=== PATIENT | female | born 1955 | race Caucasian/White ===

== ENCOUNTER → 2016-09-03 | Day surgery (SDC) | payer OTHER ==
[~2016-09-03] VITALS: Ht 162.6 cm; Wt 63.5 kg
--- NOTE | 2016-09-03 16:12 | Operative Report ---
Operative/Inv Procedure Report Surgery Date: 09/03/16 Name of Procedure: Left shoulder arthroscopy, arthroscopic rotator cuff (subscapularis) repair, subacromial decompression, extensive debridement, subpectoral biceps tenodesis Pre-Operative Diagnosis: Left shoulder subscapular tear Post-Operative Diagnosis: Left shoulder subscapularis tear Estimated Blood Loss: scant Surgeon/Stone Cleaner: ALONZO MARIEE,ARLEN Rivera. Anesthesia: general endotracheal tube, block Complications: None Condition: Stable to PACU Operative Indication: This is a 60-year-old female who is left shoulder. MRI showed a subscapularis tear. She has failed conservative care. Risks and benefits of the procedure were discussed with the patient at length. Risks include but are not limited to nerve damage, muscle damage, infection, blood loss, blood clots, pulmonary embolus, and even . The patient agreed to the above risks and elected to proceed with surgery. Operative/Procedure Note Note: The patient was taken to the operating room and placed in the lateral decubitus position with the operative side up after anesthesia was induced. The upper extremity was prepped and draped in the normal sterile fashion. A timeout was performed prior to incision. The site marking was visualized prior to incision. IV antibiotics were given prior to incision. After the upper extremity was prepped and draped a spinal needle was used to insufflate the shoulder joint with saline. An 11 blade was used to incise the skin for the posterior portal placement. The cannula was then placed. The camera was inserted. An anterior portal was established just proximal and lateral to the coracoid with a spinal needle and an 11 blade. The diagnostic arthroscopy was then performed that showed the above findings. The biceps tendon was tenotomized at its base with a wand. A combination of a shaver and a wand were used to stabilize the anterior inferior as well as superior labrum. The shaver was used to debride the anterior inferior glenoid. The shaver was then used to prepare the bony bed of the subscapularis insertion. The lesser tuberosity was decorticated with the shaver back to a healthy bed of bleeding bone. A cannula was placed through the anterolateral portal position. This was made with the use of a spinal needle and an 11 blade. A 5.5 mm helicoil anchor was then inserted into the lesser tuberosity. The sutures were then shuttled with a lasso loop type configuration grasping the rolled border of the superior scapularis tendon. Once this was passed this served to reduce the subscapularis tendon back to the footprint. This was tied down over the top. The excess suture was cut. Stable fixation was obtained. Next the subacromial space was entered through the posterior portal. Next the shaver was inserted through the previous anterolateral portal and a subacromial bursectomy was performed. Any bleeding vessels were identified and cauterized. The shaver was used to debride any bursal tissue on the undersurface of the acromion and surrounding the humeral head. The coracoacromial ligament was taken down with a wand. Care was taken to protect the rotator cuff tissue and only take bursal tissue. A wand was then used to further take down the soft tissue on the undersurface of the acromion. A bur was then inserted and the acromioplasty was then begun starting at the anterolateral edge of the acromion. This was extended down to the level of the acromioclavicular joint. This was then tapered further posteriorly. The shaver was used to debride mild partial tearing of the supraspinatus tendon. A 1/8 inch Hemovac drain was placed through the posterior portal. All instruments were removed and the shoulder was copiously irrigated. The portal sites were closed with 3-0 nylon suture in a simple interrupted fashion. An incision was then made in the axillary fold. Blunt dissection was performed and the pectoralis major tendon was identified. A Hohmann retractor was inserted deep to this to expose the bicipital groove. The biceps tendon was then delivered from the wound and whipstitched starting at the musculotendinous junction. It extended proximally. The excess tendon was cut. The bicipital groove was then cleared off of any soft tissue. A guidewire was then drilled from an anterior to posterior direction in the groove. A 7 mm reamer was then used over the wire to drill the anterior cortex. A 7 x 10 mm Arthrex peek tenodesis screw was then inserted after the biceps tendon was delivered into the drill hole. The screw was then tightened down flush with the anterior humeral cortex. The sutures were then tied over the top. The excess suture was cut. The wound was copiously irrigated. The skin was closed with 2-0 vicryl suture in a simple interrupted fashion and a running subcuticular 4-0 Monocryl stitch. Dermabond was applied. A dry sterile dressing was placed. A sling was applied. The patient was transferred to PACU in stable condition. Findings: Tearing of the upper border of the subscapularis tendon from the lesser tuberosity. Supraspinatus intact. Infraspinatus intact. SLAP tear present. Anterior inferior labral tear present. Grade 3 chondral changes of the anterior inferior glenoid. Grade 1 softening of the humeral head. No loose bodies noted. Partial thickness tear of the biceps tendon. Subacromial bursitis present. Acromial hook present. Mild partial tearing of the bursal side of the rotator cuff.
== END ==
LOC: STS 04:27
DX: M75.112 Incomplete rotator cuff tear or rupture of left shoulder, not specified as traumatic (principal); M67.814 Other specified disorders of tendon, left shoulder; M75.52 Bursitis of left shoulder; E07.9 Disorder of thyroid, unspecified
CPT/HCPCS: J0131; J0171; J0690; J2250